=== PATIENT | male | born 1990 | race Caucasian/White ===

== ENCOUNTER 2018-06-13 16:25 | Emergency (ER) | payer BC ==
--- NOTE | 2018-06-13 17:33 | EDM.PDOCBH ---
ED HPI GENERAL MEDICAL PROBLEM - General Chief Complaint: Behavioral/Psych Stated Complaint: I just don't feel like I really care Time Seen by Provider: 06/13/18 17:00 Source of Information: Reports: Patient History Limitations: Reports: No Limitations - History of Present Illness INITIAL COMMENTS - FREE TEXT/NARRATIVE: 27-year-old male who presents to the emergency department via his boss who reports that he has not been to work since Tuesday of last week. The patient reports to me that he just didn't feel like he needed to be around people and didn't feel like he needed to be out in public. He states he was feeling depressed but also feeling anxious. And he just didn't go to work because of this. He tells me that he did little to nothing well he was at home. He pretty much just slept area and he doesn't really remember much about this weekend. Apparently, he presented to the walk-in clinic on Tuesday of this last week, 06/09, and reported that he was feeling much more anxious and depressed and they increased his Effexor 250 mg a day and provided him with a prescription of Klonopin 1 mg tablets to be taken 0.5-1 tablet 3 times a day as needed for anxiety. He actually admitted to me that he had probably been taking more of the Klonopin that he was supposed to and in fact of the 30 tablets that he had filled on Tuesday he only has 4 left at this time. He tells me that he feels depressed and he doesn't really seem to care about much and doesn't really want to do anything. He is however quite happy with his job and he was concerned about that job and doesn't want to lose his job. He denies any suicidal or homicidal ideation. He is oriented to date, month, year, place and situation. He did feel that it was Tuesday instead of Tuesday. He denies any pain. He rates his pain as a 0/10. There are no other associated signs or symptoms. There are no other modifying factors. 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 Apparently he has taken 26, 1 mg Klonopin since . - Related Data Allergies Allergy/AdvReac Type Severity Reaction Status Date / Time No Known Allergies Allergy Verified 06/13/18 18:42 Home Meds: Home Meds Venlafaxine [Effexor] 150 mg PO DAILY 06/13/18 [History] clonazePAM [Klonopin] 1 mg PO TID PRN 06/13/18 [History] Past Medical History Psychiatric History: Reports: ADHD (On no medications), Anxiety, Depression Social & Family History - Tobacco Use Smoking Status *Q: Current Every Day Smoker - Alcohol Use Alcohol Use History: Yes Alcohol Use in Last Twelve Months: Yes Alcohol Use Comment: No alcohol use for the past 4 months. Apparently he had heavy alcohol use prior to this. - Recreational Drug Use Recreational Drug Use: Yes Drug Use in Last 12 Months: Yes Recreational Drug Type: Reports: Marijuana/Hashish (Occasionally uses marijuana. 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 Denies: Hallucinations, Homicidal Ideation, Suicidal Ideation Hematologic/Lymphatic: Reports: No Symptoms Immunologic: Reports: No Symptoms ED EXAM, BEHAVIORAL HEALTH - Physical Exam Exam: See Below Exam Limited By: No Limitations General Appearance: Alert Eye Exam: Bilateral Eye: EOMI, Normal Inspection, PERRL Ears: Normal External Exam, Hearing Grossly Normal Nose: Normal Inspection, Normal Mucosa, No Blood Throat/Mouth: Normal Lips, Normal Gums, Normal Oropharynx, Normal Voice, No Airway Compromise Head: Atraumatic, Normocephalic Neck: Normal Inspection, Supple, Non-Tender, Full Range of Motion Respiratory/Chest: No Respiratory Distress, Lungs Clear, Normal Breath Sounds, No Accessory Muscle Use, Chest Non-Tender Cardiovascular: Normal Peripheral Pulses, Regular Rate, Rhythm, No Edema, No Gallop, No Murmur GI/Abdominal: Normal Bowel Sounds, Soft, Non-Tender, No Organomegaly, No Mass Back Exam: Normal Inspection, Full Range of Motion Extremities: Normal Inspection, Normal Range of Motion, Non-Tender, No Pedal Edema, Normal Capillary Refill Neurological: Alert, CN II-XII Intact, Normal Cognition, Normal Gait, Normal Reflexes, No Motor/Sensory Deficits, Oriented x 3, Memory Loss Recent Events ( As mentioned above) Psychiatric: Alert, Normal Cognition, Oriented, Depressed Mood, Flat Affect, Withdrawn, Other (Mentating normally. Appears to have insight into his situation /condition.). No: Homicidal Thoughts, Suicidal Thoughts, Auditory Hallucinations, Visual Hallucinations, Grandiose Thoughts Skin Exam: Warm, Dry, Intact, Normal color, No rash COURSE, BEHAVIORAL HEALTH COMP - Course Vital Signs: Last Vital Signs Temp 36.2 C 06/13/18 16:30 Pulse 78 06/13/18 16:30 Resp 20 06/13/18 16:30 BP 131/81 06/13/18 16:30 Pulse Ox 98 06/13/18 16:30 Orders, Labs, Meds: Laboratory Tests 06/13/18 06/13/18 06/13/18 Range/Units 17:15 17:15 17:15 WBC 7.3 (4.5-12.0) X10-3/uL RBC 5.53 (4.30-5.75) x10(6)uL Hgb 17.4 (13.5-17.8) g/dL Hct 49.6 (30.0-51.3) % MCV 89.7 (80-96) fL MCH 31.5 (27.7-33.6) pg MCHC 35.1 (32.2-35.4) g/dL RDW 12.2 (11.5-15.5) % Plt Count 199 (125-369) X10(3)uL MPV 9.2 (7.4-10.4) fL Neut % (Auto) 67.7 (46-82) % Lymph % (Auto) 22.7 (13-37) % Barrow % (Auto) 7.0 (4-12) % Eos % (Auto) 2 (1.0-5.0) % Baso % (Auto) 1 (0-2) % Neut # (Auto) 5.0 (1.6-8.3) # Lymph # (Auto) 1.6 (0.6-5.0) # Barrow # (Auto) 0.5 (0.0-1.3) # Eos # (Auto) 0.1 (0.0-0.8) # Baso # (Auto) 0.1 (0.0-0.2) # Sodium 140 (135-145) mmol/L Potassium 4.3 (3.5-5.3) mmol/L Chloride 103 (100-110) mmol/L Carbon Dioxide 31 (21-32) mmol/L BUN 9 (7-18) mg/dL Creatinine 1.0 (0.70-1.30) mg/dL Est Cr Clr Drug Dosing TNP Estimated GFR (MDRD) > 60 (>60) BUN/Creatinine Ratio 9.0 (9-20) Glucose 84 (80-116) mg/dL Calcium 9.4 (8.6-10.2) mg/dL Magnesium 2.4 (1.8-2.5) mg/dL Total Bilirubin 0.6 (0.1-1.3) mg/dL AST 18 (5-25) IU/L ALT 50 H (12-36) U/L Alkaline Phosphatase 82 (56-112) IU/L Total Protein 7.8 (6.0-8.0) g/dL Albumin 4.2 (3.5-5.2) g/dL Globulin 3.6 g/dL Albumin/Globulin Ratio 1.2 TSH, Ultra Sensitive (0.36-3.74) IU/mL Urine Opiates Screen (NEGATIVE) Ur Oxycodone Screen (NEGATIVE) Ur Propoxyphene Screen (NEGATIVE) Ur Barbituates Screen (NEGATIVE) Ur Tricyclics Screen (NEGATIVE) Ur Phencyclidine Scrn (NEGATIVE) Ur Amphetamine Screen (NEGATIVE) Urine MDMA Screen (NEGATIVE) U Benzodiazepines Scrn (NEGATIVE) U Cocaine Metab Screen (NEGATIVE) U Marijuana (THC) Screen (NEGATIVE) Ethyl Alcohol < 0.03 (<0.03) % 06/13/18 06/13/18 Range/Units 17:15 17:30 WBC (4.5-12.0) X10-3/uL RBC (4.30-5.75) x10(6)uL Hgb (13.5-17.8) g/dL Hct (30.0-51.3) % MCV (80-96) fL MCH (27.7-33.6) pg MCHC (32.2-35.4) g/dL RDW (11.5-15.5) % Plt Count (125-369) X10(3)uL MPV (7.4-10.4) fL Neut % (Auto) (46-82) % Lymph % (Auto) (13-37) % Barrow % (Auto) (4-12) % Eos % (Auto) (1.0-5.0) % Baso % (Auto) (0-2) % Neut # (Auto) (1.6-8.3) # Lymph # (Auto) (0.6-5.0) # Barrow # (Auto) (0.0-1.3) # Eos # (Auto) (0.0-0.8) # Baso # (Auto) (0.0-0.2) # Sodium (135-145) mmol/L Potassium (3.5-5.3) mmol/L Chloride (100-110) mmol/L Carbon Dioxide (21-32) mmol/L BUN (7-18) mg/dL Creatinine (0.70-1.30) mg/dL Est Cr Clr Drug Dosing Estimated GFR (MDRD) (>60) BUN/Creatinine Ratio (9-20) Glucose (80-116) mg/dL Calcium (8.6-10.2) mg/dL Magnesium (1.8-2.5) mg/dL Total Bilirubin (0.1-1.3) mg/dL AST (5-25) IU/L ALT (12-36) U/L Alkaline Phosphatase (56-112) IU/L Total Protein (6.0-8.0) g/dL Albumin (3.5-5.2) g/dL Globulin g/dL Albumin/Globulin Ratio TSH, Ultra Sensitive 3.14 (0.36-3.74) IU/mL Urine Opiates Screen Negative (NEGATIVE) Ur Oxycodone Screen Negative (NEGATIVE) Ur Propoxyphene Screen Negative (NEGATIVE) Ur Barbituates Screen Negative (NEGATIVE) Ur Tricyclics Screen Negative (NEGATIVE) Ur Phencyclidine Scrn Negative (NEGATIVE) Ur Amphetamine Screen Negative (NEGATIVE) Urine MDMA Screen Negative (NEGATIVE) U Benzodiazepines Scrn Positive H (NEGATIVE) U Cocaine Metab Screen Negative (NEGATIVE) U Marijuana (THC) Screen Positive H (NEGATIVE) Ethyl Alcohol (<0.03) % Re-Assessment/Re-Exam: 1820 hrs.: Patient's lab tests are back and are all reassuringly normal. The urine tox screen was positive for THC and benzos which was expected. He has remained vitally stable. He has remained calm and cooperative. I reached out to [facility] for psych consult. I discussed this with the patient and he is in agreement with this telemedicine evaluation. Taylor through [email or web address] will be talking to the patient. Re-Assessment/Re-Exam Date: 06/13/18 (2100 hrs.: Rose from [email or web address] psych telemedicine did not feel the patient met criteria for a 72 hour hold. She also discussed potential inpatient admission with the patient and he was not in agreement with inpatient admission. Patient stating that he wants to go home. I have provided him with the contact of [facility] and I have informed him to call the office tomorrow to arrange for counseling. I have strongly recommended that he make an appointment for counseling. He should continue to take his Effexor. I told them to not take anymore of the Klonopin. By signing his discharge paperwork, he is also alysa for safety.) Departure - Departure Time of Disposition: 21:15 Disposition: Home, Self-Care 01 Clinical Impression: Anxiety, Noncompliance with medication treatment due to abuse of medication Depression Qualifiers: Depression Type: major depressive disorder Major depression recurrence: unspecified whether recurrent Active/Remission status: currently active Major depression episode severity: moderate Qualified Code(s): F32.1 - Major depressive disorder, single episode, moderate - Discharge Information Instructions: Major Depressive Disorder, Adult, Generalized Anxiety Disorder, Adult, Living With Anxiety Referrals: PCP,None [Primary Care Provider] - Uyen Franklin CFO CONTROLLER [Nurse Practitioner] - Forms: ED Department Discharge Additional Instructions: You appeared to have major depression associated with anxiety. This is significantly affecting your ability to function. You have overtaken your clonazepam and I advised her not to take this medication anymore. You should continue to take the Effexor and titrate up the dose as was recommended. You should call [facility], , tomorrow to make arrangements for counseling. The counselor there is Odette Kay. I have also sent a referral to Uyen Franklin NP and they should reach out to set up an appointment with you. By signing your discharge paperwork, you are alysa for safety. You are affirming that you do not want to kill yourself and that you have no plans to kill or harm herself. You are also affirming if you begin to have thoughts of wanting to harm or kill yourself or other people, you will not harm or kill yourself or other people and you will either call the crisis line at [phone], call a family or friend or you will come back to the emergency department for reevaluation.
== END 2018-06-13 19:40 | disposition home or self-care (01) ==
LOC: FB.ED 16:25
DX: F32.1 Major depressive disorder, single episode, moderate (principal); F41.9 Anxiety disorder, unspecified; Z91.19 Patient's noncompliance with other medical treatment and regimen
CPT/HCPCS: 36415; 80053; 80305; 83735; 84443; 85025; 99284; G0480